=== PATIENT | female | born 1970 | race Caucasian/White ===

== ENCOUNTER 2023-10-04 10:57 | Emergency (ER) | payer BC, SELFPAY ==
[2023-10-04 11:11] VITALS: BP 141/88
--- NOTE | 2023-10-04 11:29 | ED.GENMED ---
History of Present Illness
<Ellie Ken PA-C - Last Filed: 10/04/23 18:13>
General
Chief Complaint: Musculo-Skeletal Complaint
Source: patient
Exam Limitations: none
Time Seen by Provider: 10/04/23 11:26
Nursing documentation reviewed up to this point in time: agreed with
Travel History
Have you had any contact with someone who has COVID-19?: No
Do you have any symptoms of coronavirus? Fever > 100 degrees, chills, cough, shortness of breath, sore throat, loss of taste or smell, muscle aches, or headache?: No
History of Present Illness
History of Present Illness:
53 y/o female with no PMH presenting to the emergency department today with medial left knee pain following twisting her knee occurred a few days ago. Patient states that she was walking outside and tripped over a brick on the patio for, when she
twisted her knee with a planted foot. Patient states that she did not have a lot of pain at the time, and thought nothing of it but then she started to have increasing pain and now complains of a lot of pain especially with knee flexion. Patient
denies any fall, denies any head trauma, denies any other injuries. Patient is able to ambulate without difficulty. Patient has not tried anything specific for the pain. Patient does not have an orthopedist she follows with.
Review of Systems
<Ellie Ken PA-C - Last Filed: 10/04/23 18:13>
Review of Systems
All Other Systems: ROS reviewed and negative except as documented in HPI and ROS
Phy Exam
<Ellie Ken PA-C - Last Filed: 10/04/23 18:13>
Physical Exam
Physical Exam:
Vitals: Patient's vital signs are stable
General: Patient is well-appearing in no acute distress
Skin: Warm and dry, no rashes or lesions
Head: Normocephalic, atraumatic
Cardiac: Regular rate
Peripheral vascular: Patient has 2+ dorsalis pedis pulses b/l
Pulm: Normal respiratory effort
Abdomen: No abdominal tenderness
Musculoskeletal: Patient is able to ambulate without difficulty. Patient has full range of motion bilateral lower extremities. Patient has negative Nitesh's test, negative anterior drawer testing, negative posterior drawer testing. Patient does
have some mild pain with Aziza's test but no ligament laxity or knee gapping. Patient does have some mild swelling on the left medial knee. No erythema, no palpable fluctuance.
Neuro: CN II-XII intact. AAOx3. No focal deficits.
Course
<Ellie Ken PA-C - Last Filed: 10/04/23 18:13>
Orders/Labs/Results
Orders:
Orders
10/04/23 11:14
Knee, Left 4 or More Views [CR Knee - Left 4 Or More View*] Urgent
Comment:
Reason For Exam: Injury/Trauma
Vital Signs
Initial and Last Documented VS:
Initial Vital Signs
Temp Pulse Resp BP Pulse Ox
98.2 F 86 18 141/88 97
10/04/23 11:11 10/04/23 11:11 10/04/23 11:11 10/04/23 11:11 10/04/23 11:11
Last Documented Vital Signs
Temp Pulse Resp BP Pulse Ox
98.2 F 86 18 141/88 97
10/04/23 11:11 10/04/23 11:11 10/04/23 11:11 10/04/23 11:11 10/04/23 11:11
<Raudel Kebede DO - Last Filed: 10/04/23 12:07>
Orders/Labs/Results
Orders:
Orders
10/04/23 11:14
Knee, Left 4 or More Views [CR Knee - Left 4 Or More View*] Urgent
Comment:
Reason For Exam: Injury/Trauma
Vital Signs
Initial and Last Documented VS:
Initial Vital Signs
Temp Pulse Resp BP Pulse Ox
98.2 F 86 18 141/88 97
10/04/23 11:11 10/04/23 11:11 10/04/23 11:11 10/04/23 11:11 10/04/23 11:11
Last Documented Vital Signs
Temp Pulse Resp BP Pulse Ox
98.2 F 86 18 141/88 97
10/04/23 11:11 10/04/23 11:11 10/04/23 11:11 10/04/23 11:11 10/04/23 11:11
<Ellie Ken PA-C - Last Filed: 10/04/23 18:13>
MDM/Problems Addressed
Differential Diagnosis Includes:
ddx include medial meniscus sprain, ACL sprain, PCL sprain,
MDM/Problems Addressed:
knee pain
Chronic conditions affecting care:
n/a
Acute Exacerbation and/or Progression of Chronic Illness:
n/a
<Ellie Ken PA-C - Last Filed: 10/04/23 18:13>
*Pulse Oximetry
Patient hypoxic: no
*Critical Care Note
Total Time (30-74mins, 75-104mins- exclusive of procedures): Not Applicable
Data Reviewed
Review of Other/Old Records Reveals: Records (No previous records in [facility] to review) and Discharge Summary (No discharge summary in [facility] to review)
Source: patient and records
Prescriptions/Medications Considered But Not Given:
Consider medication for pain control but patient comfortable at this time only has mild pain
<Ellie Ken PA-C - Last Filed: 10/04/23 18:13>
Patient Management
Escalation/DeEscalation of care consider admission/obs:
53 y/o female with no PMH presenting to the emergency department today with medial left knee pain following twisting her knee occurred a few days ago. On physical exam, her left knee joint is stable and there is no significant gapping of the joint
or ligament laxity. Patient is negative Nitesh's test, negative anterior and posterior drawer testing. Patient does have some pain with valgus testing of the left knee but no laxity. No bony deformity present on x-ray. Most suspicious for a
mild medial meniscus tear. Patient is stable at this time. Will send patient home with a knee immobilizer and orthopedic follow-up. Patient agreement with plan.
ED Attending Note
<Ellie Ken PA-C - Last Filed: 10/04/23 18:13>
-
Portions of this chart may have been created with voice recognition software.� Occasional wrong word or��sound alike� substitutions may have occurred due to the inherent limitations of voice recognition software.
<Raudel Kebede DO - Last Filed: 10/04/23 12:07>
ED Attending Note
Patient seen and examined by attending physician: Yes
I performed the substantive portion of visit, reviewed & personally made and approve the management plan that is documented in note by myself or RAYMUNDO.: Yes
ED Attending Note:
I have seen and evaluated the patient with a [id number] encounter. I have spoken to the advance practicer provider and involved in the medical history, the physical exam, medical decision making.
Evaluation and management service: agree unless noted differently below.
Results interpretation: agree unless noted differently below.
Focused HPI: 53-year-old female presenting with left knee injury. Patient was walking down the steps and she twisted her knee. Patient complains of medial knee pain but denies numbness or tingling. Patient able to ambulate
Physical exam: Mild swelling to left medial knee. Knee stable to varus and valgus stress. Negative Nitesh's test.
Medical Decision Making: We discussed likely knee sprain. Discussed knee immobilizer and follow-up orthopedics if symptoms persist
Discharge Plan
Departure
Patient Disposition: Home (Routine Discharge)
Date of Disposition: 10/04/23
Time of Disposition: 11:58
Patient with high blood pressure during this ER visit?: Yes
Condition: Good
Discharge Problem:
Left knee sprain
Instructions: Knee Immobilizer (DC), Knee Sprain (DC), BLOOD PRESSURE
Referrals:
Rita Kelsey NP [Family Provider] -
Matthew Champion MD [Active] - Call in 1-3 days for appt
Activity Restrictions/Additional Instructions:
As discussed, please weight bear as tolerated and please rest, use ice to help with the swelling, ibuprofen as needed for pain, and use your knee immobilizer when ambulating.
We have given you a referral for orthopedist should you symptoms not resolve.
Please follow up with your primary care provider, please return for new or worsening symptoms.
Interventions
Interventions:
*Risk Screen - Suicide Last Done: 10/04/23 11:11
*Neglect/Abuse Screening Last Done: 10/04/23 11:11
*ED COVID-19 Vaccine History Last Done: 10/04/23 11:11
*Nursing Disposition Last Done: 10/04/23 12:32
ED-Musculoskeletal Assessment Last Done: 10/04/23 11:45
Discharge Date and Time
Discharge Date/Time: 10/04/23 12:33
Print Language: KHMER
== END 2023-10-04 12:33 | disposition home or self-care (01) ==
LOC: EMR 10:57
PROVIDERS: EMERGENCY PHYSICIAN Student in an Organized Health Care Education/Training Program; FAMILY PHYSICIAN Nurse Practitioner Adult Health
DX: S83.92XA Sprain of unspecified site of left knee, initial encounter (principal); W18.40XA Slipping, tripping and stumbling without falling, unspecified, initial encounter
CPT/HCPCS: 99283; 73564